=== PATIENT | female | born 1995 | race African-American/Black ===

== ENCOUNTER 2025-02-08 00:51 | Emergency (ER) | payer MEDICAID ==
[~2025-02-08] VITALS: Ht 160 cm; Wt 59.0 kg
[2025-02-08 01:08] VITALS: O2SAT 99
[2025-02-08] MEDS: IBUPROFEN 600MG TABLET PO STA (02:17)
[2025-02-08] MEDS ORDERED: IBUP-2029 MT (04:54)
[2025-02-08 05:36] VITALS: BP 114/71; PULSE 78; RESP 19; TEMP 36.7; O2SAT 100
== END 2025-02-08 05:43 | disposition home or self-care (01) ==
LOC: ER 01:05
DX: S92.901A Unspecified fracture of right foot, initial encounter for closed fracture (principal); J45.909 Unspecified asthma, uncomplicated; Z88.6 Allergy status to analgesic agent; V89.2XXA Person injured in unspecified motor-vehicle accident, traffic, initial encounter; Y93.9 Activity, unspecified; Y92.89 Other specified places as the place of occurrence of the external cause; Y99.8 Other external cause status
CPT/HCPCS: 99284; 29515; 70450; 73620; A6449